=== PATIENT | female | born 1995 | race African-American/Black ===

== ENCOUNTER 2020-05-25 18:37 | Inpatient (IN) | payer MEDICAID ==
[2020-05-25] MEDS ORDERED: MINERAL OIL 30 ML ORAL LIQD PO PRN (20:21)
[2020-05-25] MEDS ORDERED: ePHEDrine SULFATE 50 MG/1 ML INJ IV PRN (20:21)
[2020-05-25] MEDS ORDERED: LIDOCAINE (2%) 20 MG/1 ML VIAL 20 ML MDV INFILTRATI ONE ×2 (20:21→23:10)
[2020-05-25] MEDS ORDERED: TERBUTALINE 1 MG/1 ML INJ IVP PRN (20:21)
[2020-05-25] MEDS ORDERED: TERBUTALINE 1 MG/1 ML INJ SUB-Q PRN (20:21)
[2020-05-25] MEDS ORDERED: LACTATED RINGERS 1,000 ML IV SCH (21:00)
[2020-05-25] MEDS ORDERED: OXYTOCIN 20 UNIT/1000ML DRIP 20 UNITS/1,000 ML BAG IV SCH (21:00)
[2020-05-25] MEDS ORDERED: OXYTOCIN DRIP 30 UNITS/500 ML BAG IV SCH (21:00)
[2020-05-25 21:18] LABS: Hematocrit 33.6 % (30.3-42.9); Hemoglobin 11.8 gm/dl (10.1-14.3); Mean Corpuscular HGB Conc 35 % (30-34); Mean Corpuscular Volume 85 fl (79-97); Platelet Count 188 K/mm3 (140-440); Red Blood Count 3.95 M/mm3 (3.65-5.03); Red Cell Distribution Width 15.1 % (13.2-15.2)
[2020-05-25] MEDS ORDERED: fentaNYL 100 MCG/2 ML INJ IV PRN (23:10)
[2020-05-25] MEDS ORDERED: BUTORPHANOL 2 MG/1 ML INJ IV PRN (23:10)
[2020-05-25] MEDS ORDERED: ONDANSETRON 4 MG/2 ML INJ IV PRN (23:10)
--- NOTE | 2020-05-25 23:15 | History and Physical Report ---
History of Present Illness Date of examination: 05/25/20 Date of admission: 05/25/20 20:21 Past History - Obstetrical History Expected Date of Delivery: 05/20/20 Actual Gestation: 40 Week(s) 5 Day(s) : 1 Para: 0 Number of Living Children: 0 Medications and Allergies Allergies Allergy/AdvReac Type Severity Reaction Status Date / Time No Known Allergies Allergy Verified 05/25/20 20:00 Home Medications Medication Instructions Recorded Confirmed Last Taken Type Multivitamin Tablet 1 tab PO DAILY 05/25/20 05/25/20 05/24/20 History Active Meds: Active Medications Ephedrine Sulfate (Ephedrine Sulfate) 10 mg IV Q2M PRN PRN Reason: Hypotension Oxytocin/Sodium Chloride (Pitocin/Ns 20 Unit/1000ml Drip) 20 units in 1,000 mls @ 125 mls/hr IV DIRECT PABLO Oxytocin/Sodium Chloride (Pitocin/Ns 30 Unit/500ml) 30 units in 500 mls @ 4 mls/hr IV TITR PABLO; Protocol Last Admin: 05/25/20 22:40 Dose: 2 ml/hr, 2 mls/hr Documented by: Lactated Ringer's (Lactated Ringers) 1,000 mls @ 125 mls/hr IV DIRECT PABLO Last Admin: 05/25/20 21:26 Dose: 125 mls/hr Documented by: Mineral Oil (Mineral Oil) 30 ml PO QHS PRN PRN Reason: Constipation Terbutaline Sulfate (Brethine) 0.25 mg SUB-Q ONCE PRN PRN Reason: Hyperstimulation/Hypertonicity Terbutaline Sulfate (Brethine) 0.25 mg IVP ONCE PRN PRN Reason: Hyperstimulation/Hypertonicity - Vital Signs Vital signs: Vital Signs Pulse BP Pulse Ox 77 120/103 98 05/25/20 19:02 05/25/20 19:02 05/25/20 19:02 Temp Pulse Resp BP Pulse Ox 98.6 F 86 18 118/74 95 05/25/20 19:52 05/25/20 20:38 05/25/20 19:52 05/25/20 20:38 05/25/20 20:22 - Obstetrical Cervical Dilatation: 4 Cervical Effacement Percentage: 70 Uterine Contraction Pattern: Irregular Results Result Diagrams: 05/25/20 20:53 Abnormal lab results 05/25/20 Range/Units 20:53 MCHC 35 H (30-34) % All other labs normal.
[2020-05-26] MEDS: LACTATED RINGERS 1,000 ML IV SCH ×5 (03:50→17:16)
[2020-05-26] MEDS ORDERED: DEXMEDETOMIDINE 200 MCG/2 ML VIAL IV ONE (08:35)
[2020-05-26] MEDS ORDERED: ONDANSETRON 4 MG/2 ML INJ IV PRN ×2 (08:56→22:53)
[2020-05-26] MEDS ORDERED: NALOXONE 2 MG/2 ML INJ IV PRN (08:56)
[2020-05-26] MEDS ORDERED: NalbUPHINE 10 MG/1 ML INJ IV PRN (08:56)
[2020-05-26] MEDS ORDERED: diphenhydrAMINE 50 MG/ML VIAL IV PRN (08:56)
--- NOTE | 2020-05-26 08:58 | Anesthesia Consultation ---
Anesthesia Consult and Med Hx Date of service: 05/26/20 - Airway Anesthetic Teeth Evaluation: Good ROM Head & Neck: Adequate Mental/Hyoid Distance: Adequate Mallampati Class: Class II Intubation Access Assessment: Good - Pulmonary Exam CTA: Yes - Cardiac Exam Cardiac Exam: RRR - Pre-Operative Health Status ASA Pre-Surgery Classification: ASA2 Proposed Anesthetic Plan: Epidural - Pulmonary Hx Smoking: Yes (quit 1 year ago) Hx Asthma: No Hx Sleep Apnea: No - Cardiovascular System Hx Hypertension: No - Central Nervous System Hx Seizures: No Hx Psychiatric Problems: No - Gastrointestinal Hx Gastroesophageal Reflux Disease: No - Endocrine Hx Renal Disease: No Hx Hypothyroidism: No Hx Hyperthyroidism: No - Hematic Hx Anemia: No Hx Sickle Cell Disease: No - Other Systems Hx Alcohol Use: No
--- NOTE | 2020-05-26 08:59 | Progress Note ---
Labor Epidural - Labor Epidural Start Time: 08:38 Stop Time: 08:46 Performed by:: LORI ROSA Procedure: Patient is requesting a laboring epidural for laboring pain. Patient IDed, H&P reviewed, all questions and concerns were answered, and consent was signed. Timeout was performed at bedside. Patient in sitting position. Sterile prep and drape was performed. 3ml of 1% lidocaine skin wheal at L[3]- L [4]. 18- gauge Touhy epidural needle was advanced to loss of resistance with air technique. Negative CSF negative blood. Epidural catheter advanced to [11] centimeters. [-] Aspiration [-] test dose. Sterile dressing applied. Patient tolerated procedure.
[2020-05-26] MEDS: fentaNYL-BUPIV 2 MCG/ML-0.125% 200 MCG/100 ML BAG EPIDURAL SCH ×2 (09:15→17:16)
--- NOTE | 2020-05-26 20:24 | Procedure Note ---
OB Delivery Note - Delivery Date of Delivery: 05/26/20 Surgeon: ROLANDO CARR Estimated blood loss: 300cc - Vaginal Delivery presentation: vertex Delivery position: OA Intrapartum events: none Delivery augmentation: rupture of membranes, pitocin Delivery monitor: external FHT, external uterine Route of delivery: Delivery placenta: spontaneous Delivery cord: 3 umbilical vessels Episiotomy: none Delivery laceration: 1st degree Delivery repair: vicryl Anesthesia: epidural Delivery comments: Viable female delivered over intact perineum with shoulder cord. Weight 7 pounds 10 ounces. Apgars 8,9. Placenta delivered spontaneously and intact with 3vc. Small first degree laceration repaired with 2.0 vicryl. Patient tolerated procedure well. Excellent hemostasis. - A at 1 minute: 8 at 5 minutes: 9 Infant Gender: Female (7 pounds 11 ounces)
[2020-05-26] MEDS ORDERED: ACETAMINOPHEN 325 MG TAB PO PRN (22:53)
[2020-05-26] MEDS ORDERED: diphenhydrAMINE 25 MG CAP PO PRN (22:53)
[2020-05-26] MEDS ORDERED: HYDROcodone/ACETAMINOPHEN 5-325 MG TAB PO PRN (22:53)
[2020-05-26] MEDS ORDERED: MAGNESIUM HYDROXIDE (MOM) ORAL LIQD UDC PO PRN (22:53)
[2020-05-26] MEDS ORDERED: PROMETHAZINE 25 MG TAB PO PRN (22:53)
[2020-05-26] MEDS ORDERED: PROMETHAZINE 25 MG RECT SUPP PR PRN (22:53)
[2020-05-26] MEDS ORDERED: LANOLIN/ZINC/DIMETHICONE (LANSINOH) 7 GM TP PRN (22:53)
[2020-05-26] MEDS ORDERED: WITCH HAZEL/ GLYCERIN PAD TP PRN (22:53)
[2020-05-26] MEDS ORDERED: BENZOCAINE/MENTHOL 20/0.5% TOP SPRAY 56 GM TP PRN (22:57)
--- NOTE | 2020-05-27 07:54 | Post Anesthesia Evaluation ---
- Post Anesthesia Evaluation Patient Participated: Yes Airway Patent: Yes Stable Respiratory Function: Yes Nausea/Vomiting: No Temp > 96.8F: Yes Pain Manageable: Yes Adequeate Hydration: Yes Anesthesia Complications: No Block Receding Appropriately: Yes Patient on Ventilator: No
[2020-05-27] MEDS: IBUPROFEN 600 MG TAB PO SCH ×2 (08:05→16:33)
[2020-05-27 08:35] LABS: Hematocrit 28.2 % (30.3-42.9); Hemoglobin 9.8 gm/dl (10.1-14.3)
[2020-05-27] MEDS: DOCUSATE SODIUM 100 MG CAP PO SCH ×2 (10:43→22:16)
[2020-05-27] MEDS: PRENATAL VIT27-FE FUMARATE-FOLIC ACID VIT TAB PO SCH (10:43)
[2020-05-28] MEDS: IBUPROFEN 600 MG TAB PO SCH ×3 (05:40→12:18)
[2020-05-28] MEDS: PRENATAL VIT27-FE FUMARATE-FOLIC ACID VIT TAB PO SCH (12:18)
[2020-05-28] MEDS: DOCUSATE SODIUM 100 MG CAP PO SCH (12:18)
--- NOTE | 2020-05-28 12:48 | Progress Note ---
Assessment and Plan PPD 2 s/p . Doing well. Plan for discharge today. Subjective - Subjective Date of service: 05/28/20 Patient reports: appetite normal, voiding normally, ambulating normally : doing well Objective - Vital Signs Latest vital signs: Vital Signs Temp Pulse Resp BP BP Pulse Ox 05/28/20 08:05 98.1 F 63 20 105/65 05/28/20 06:10 16 05/28/20 00:26 97.9 F 66 20 106/59 96 05/27/20 16:01 98.3 F 75 20 95/57 96 Intake and Output 05/27/20 05/28/20 05/28/20 22:59 06:59 14:59 Intake Total 120 120 Output Total 200 Balance -200 120 120 Intake: Oral 120 Intake, Free Water 120 Output: Urine 200 Void 200 Other: Total, Intake Amount 120 Total, Output Amount 200 Voiding Method Toilet # Voids Void 1 1 - Exam Breasts: Present: deferred Cardiovascular: Present: Regular rate, Normal S1, Normal S2 Lungs: Present: Clear to auscultation, Normal air movement Abdomen: Present: normal appearance, soft Uterus: Present: normal, firm Extremities: Present: normal
--- NOTE | 2020-05-28 13:14 | Discharge Summary ---
Providers - Providers Date of Admission: 05/25/20 20:21 Date of discharge: 05/28/20 Attending physician: ROLANDO CARR Primary care physician: ROLANDO CARR Hospitalization Reason for admission: active labor Delivery: Episiotomy: none Laceration: 2nd degree complications: none Discharge diagnosis: IUP at term delivered [place] baby: female Hospital course: unremarkable Condition at discharge: Good Disposition: DC-01 TO HOME OR SELFCARE Plan - Discharge Medications Prescriptions: Ibuprofen [Motrin] 800 mg PO Q8HR PRN #30 tablet PRN Reason: Pain, Mild (1-3) HYDROcodone/APAP 5-325 [[place] 5/325] 1 each PO Q6HR PRN #20 tablet PRN Reason: Pain - Provider Discharge Summary Activity: routine, no sex for 6 weeks, no heavy lifting 4 weeks, no strenuous exercise Diet: routine Instructions: routine Additional instructions: [] Smoking cessation referral if applicable(refer to patient education folder for contact #) [] Refer to [facility]'s [facility] Booklet Call your doctor immediately for: * Fever > 100.5 * Heavy vaginal bleeding ( >1 pad per hour) * Severe persistent headache * Shortness of breath * Reddened, hot, painful area to leg or breast * Drainage or odor from incision. * Keep incision clean and dry at all times and follow doctor's instructions regarding bathing/showering - Follow up plan Follow up: ROLANDO CARR MD [Primary Care Provider] - 6 Weeks Forms: [facility] Discharge Summary
[2020-05-28 14:06] VITALS: BP 116/67
== END 2020-05-28 15:22 | disposition home or self-care (01) | DRG 775 ==
LOC: TRG 18:37 → APU 18:38 → TRG 20:21 → LD 20:21 → OB 05-26 22:32
PROVIDERS: ADMIT Obstetrics & Gynecology; ATTEND Obstetrics & Gynecology
PROC: 10E0XZZ Delivery of Products of Conception, External Approach (ICD-10-PCS; principal; 2020-05-26)
PROC: 0HQ9XZZ Repair Perineum Skin, External Approach (ICD-10-PCS; 2020-05-26)
PROC: 3E0R3BZ Introduction of Anesthetic Agent into Spinal Canal, Percutaneous Approach (ICD-10-PCS; 2020-05-26)
PROC: 00HU33Z Insertion of Infusion Device into Spinal Canal, Percutaneous Approach (ICD-10-PCS; 2020-05-26)
DX: O70.0 First degree perineal laceration during delivery (principal); Z37.0 Single live birth; Z3A.40 40 weeks gestation of pregnancy
CPT/HCPCS: 36415; 85014; 85018; 85027; 86850; 86900; 86901; G0378; J0595; J2405; J2590; J3490; J7120